=== PATIENT | female | born 1970 | race Caucasian/White ===

== ENCOUNTER 2018-11-07 08:30 | Inpatient (IN) | payer BC ==
[2018-11-08 13:00] VITALS: BMI 34.7
--- NOTE | 2018-11-09 10:43 | HP ---
Admitting History and Physical - Primary Care Physician PCP: Rafiq Trevino - Admission Chief Complaint: Right breast cancer History of Present Illness: 47 year old premenapausal female with 08/2018 mammogram showing assymetry RUOQ. Us showed right 1.3 cm density 4 cm Fn and a separate density right 10:00 8cm FN measuring 6 nn. US core bx at 10:00 were benign with some mucinous material. 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 Breast MRI RUOQ cancer with extensive enhancement C/W extensive DCIS requiring two MRI core bxs 09/2018 right breast retroareolar and 3:00 which showed DCIS in both cores . Therefore she will require a mastectomy.9:00 bx has a ciol clip and MRI cores have cylinder and buckle shape clip. 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 1982) ...LMP: 10/27/18 - Smoking History Smoking history: Never smoked - Alcohol/Substance Use Hx Alcohol Use: No Home Medications - Allergies Allergies/Adverse Reactions: Allergies Allergy/AdvReac Type Severity Reaction Status Date / Time amoxicillin Allergy Hives Verified 11/08/18 12:53 aspirin Allergy Hives Verified 11/08/18 12:53 Penicillins Allergy Hives Verified 11/08/18 12:53 cats Allergy Uncoded 11/08/18 12:53 - Home Medications Home Medications: Ambulatory Orders NK [No Known Home Medication] 11/08/18 Family Disease History - Family Disease History Other Family History: mat cousin breast ca and pat cousin ? gastric ca Physical Examination Breast(s): Yes: Other (D cup breasts scarring changes right 9:00 and upper outer quadrant. no palpble adenopathy or discrete mass left breast negative) Problem List - Problems (1) Breast cancer, right breast Code(s): C50.911 - MALIGNANT NEOPLASM OF UNSP SITE OF RIGHT FEMALE BREAST Qualifiers: Breast location: overlapping sites of breast Estrogen receptor status: positive Patient sex: female Qualified Code(s): C50.811 - Malignant neoplasm of overlapping sites of right female breast; Z17.0 - Estrogen receptor positive status [ER+] Assessment/Plan Right total mastectomy ,sentenel node biopsy possible axillary node dissection, lymphoscintogram tissue talent recruiter reconstruction
[2018-11-15] MEDS ORDERED: ceFAZolin SODIUM 1 GM VIAL ONE ×2 (09:39→10:41)
[2018-11-15] MEDS ORDERED: BUPIVACAINE HCL/PF 2.5 MG/ML - 30 ML VIAL IJ ONE (09:40)
[2018-11-15] MEDS ORDERED: GENTAMICIN SO4 80 MG/2 ML VIAL ONE (09:40)
[2018-11-15] MEDS ORDERED: ISOSULFAN BLUE 10 MG/ML VIAL SQ ONE (09:40)
[2018-11-15] MEDS ORDERED: LIDOCAINE 1%/EPI 1:100000 (20 ML MULTI DOSE VIAL) ONE (09:40)
[2018-11-15] MEDS ORDERED: BUPIVACAINE LIPOSOME/PF (EXPAREL) 266 MG/20 ML VIAL ONE (10:08)
[2018-11-15] MEDS ORDERED: PROPOFOL 20 ML ONE ×3 (10:19→13:08)
[2018-11-15] MEDS ORDERED: MIDAZOLAM HCL 2 MG/2 ML SINGLE DOSE VIAL ONE (10:20)
[2018-11-15] MEDS ORDERED: DEXAMETHASONE SOD PHOSPHATE 4 MG/1 ML VIAL ONE (10:41)
[2018-11-15] MEDS ORDERED: ONDANSETRON 4 MG/2 ML VIAL ONE (10:41)
[2018-11-15] MEDS ORDERED: LIDOCAINE HCL/PF 2% SDV 5ML VIAL ONE (10:41)
[2018-11-15] MEDS ORDERED: ePHEDrine SULFATE 50 MG/1 ML AMPULE ONE (10:58)
--- NOTE | 2018-11-15 12:39 | OP ---
DATE OF OPERATION: 11/15/2018 SURGEON: Susan Tapia MD SEASONAL DRIVER SURGEON: WALLY Molina PREOPERATIVE DIAGNOSES: 1. Opened wound with necrosis of right breast status post right mastectomy. 2. Personal history of breast carcinoma. POSTOPERATIVE DIAGNOSES: 1. Opened wound with necrosis of right breast status post right mastectomy. 2. Personal history of breast carcinoma. OPERATIVE PROCEDURES: 1. Debridement, right skin and subcutaneous tissue of right breast. 2. Capsulotomy, removal and replacement of right breast tissue rn clinical documentation specialist after pulse lavage. OPERATIVE INDICATION: Patient is a young woman who has previously undergone a bilateral mastectomy for breast cancer on October 18, 2018. She presented to the office with ischemia and breakdown of the right breast wound with evidence of poor tissue perfusion on the central portion around the incision. The patient also had some drainage and symptoms of early infection. The patient had previously been attempted closure in the office setting but now requires full operation with pulse lavage and irrigation. The risks and benefits of surgical versus nonsurgical alternatives as well as the material complications including no surgery were described to the patient in detail. All questions were asked and answered. She agreed to the planned procedure. OPERATIVE PROCEDURE IN DETAIL: The patient was taken to the operating room, and after induction of general anesthesia in supine position, the entire chest wall on the right side was prepped with ChloraPrep solution over itself entire extent, and sterile drapes were placed in the usual fashion. Upon examining the wound where the sutures still removed in the central portion in a transverse fashion, an elliptical excision of the poorly perfused skin was marked out using a marking pen and then excised after time-out with a No. 10 scalpel. This was carried down through the skin, through the subcutaneous tissue, down to the underlying acellular dermal matrix, which had previously been placed. At this point, the skin and subcutaneous tissue of the chest wall was removed and sent for pathologic diagnosis on the right breast. The Alloderm appeared to be intact, and this was opened and excised. Once this was opened, the tissue rn clinical documentation specialist, which was in position was removed, and a small amount of serous fluid from around the implant was suctioned out. Granulation tissue was seen on the backwall of the device and then a pulse lavage employee welfare manager was brought into the room, and using triple antibiotic solution, 3 L of pulsed saline with triple antibiotic solution was irrigated over the entire pocket. No alex purulence was seen within the pocket itself. At this point, after copious irrigation and hemostasis, a new device of a Sientra AlloX2 tissue rn clinical documentation specialist was placed into this pocket to replace the opposite one. This had no filling at all, and the air, which came in the device, was removed sterilely. The tissues were then repaired in layers using 3-0 Vicryl suture on the incorporated portions of the Alloderm, 3-0 and 2-0 Vicryl suture on the deep dermal tissues, and a running 3-0 nylon suture on the skin. A 15 Gonsalo drain was brought out through a separate stab wound laterally, and the repair seemed to be adequate. Xeroform and fluff dressings were placed on the patient. She was placed into a surgery bra, awakened, and transferred to the recovery room in satisfactory condition. SUSAN TAPIA M.D. MARCO ANTONIO/[id number]
[2018-11-15] MEDS ORDERED: ZOLPIDEM TARTRATE 5 MG TABLET PO PRN (13:18)
[2018-11-15] MEDS ORDERED: oxyCODONE HCL 5 MG TABLET PO PRN ×3 (13:18→14:07)
[2018-11-15] MEDS ORDERED: ACETAMINOPHEN 325 MG TABLET (FP) PO PRN (13:18)
[2018-11-15] MEDS ORDERED: ONDANSETRON 4 MG/2 ML VIAL IVPUSH PRN ×2 (13:18→14:07)
[2018-11-15] MEDS ORDERED: BUPIVACAINE LIPOSOME/PF (EXPAREL) 266 MG/20 ML VIAL NR ONE (13:30)
[2018-11-15] MEDS ORDERED: DEXTROSE 5%-0.45% SALINE 1,000 ML IV SCH (13:30)
[2018-11-15] MEDS ORDERED: BUPIVACAINE HCL/PF 0.25% (2.5MG/ML) 10 ML VIAL IJ ONE (13:30)
--- NOTE | 2018-11-15 13:51 | OP ---
DATE OF OPERATION: 11/15/2018 SURGEON: Rafiq Tapia MD FULLING MACHINE OPERATOR SURGEON: Miguel Angel Benítez PA-C PREOPERATIVE DIAGNOSIS: Right acquired chest wall deformity, status post right mastectomy. POSTOPERATIVE DIAGNOSIS: Right acquired chest wall deformity, status post right mastectomy. OPERATIVE PROCEDURE: Immediate right breast reconstruction utilizing immediate insertion of tissue tree inspector and acellular dermal matrix reconstruction with mesh. OPERATIVE INDICATION: Patient is a young woman who was brought to the operating room by Dr. Rafiq Trevino for right breast mastectomy for breast cancer. Patient underwent the procedure, and Dr. Trevino will dictate under separate cover. OPERATIVE PROCEDURE IN DETAIL: After timeout and prepping and draping in the usual fashion, as Dr. Trevino began the procedure on the right chest wall with right mastectomy in uup-jcbegd-nukiter fashion and sentinel lymph node biopsy, I began the reconstruction on the back table. Using a 15 x 15 sheet of ProGrip mesh, a 16 x 20 sheet of Cortiva acellular dermal matrix, and a 460-mL AlloX2 tissue tree inspector, I reconstructed the device on the back table. These were copiously irrigated with triple-antibiotic solution, and then, using 2-0 Vicryl sutures, the anterior portion of ADM was sutured down to the mesh which was placed on the back side of the device with the ProGrip side downwards. This gave a complete wrap of the tissue tree inspector which was filled to its capacity of 550-mL volume. Good shape and contour was seen with this smooth tissue tree inspector device. Upon completion of the mastectomy, which the wounds were copiously irrigated and controlled by Dr. Trevino, I then took the device from the back table, copiously irrigated the pocket, hemostasis again obtained, and the device was placed onto the pectoralis major muscle on its deep side and in the subcutaneous position. This was tacked into position using 0 V-Loc suture in a running fashion from the mesh down to the pectoralis muscle on the inferior side from the 3 o'clock to 9 o'clock position of the right breast. After Silas-Crowe drain x2 was placed on the right side and brought out through separate stab wounds, the skin and subcutaneous tissue was advanced and closed upon itself using 3-0 PDS suture on the deep tissue and 3-0 V-Loc suture in a running fashion on the skin. Dry sterile dressings with Dermabond and Steri-Strips were placed. She was awakened, extubated, and transferred to the recovery room with a Surgi-Bra and tolerated the procedure well. RAFIQ TAPIA M.D. /[id number]
[2018-11-15] MEDS ORDERED: PROMETHAZINE HCL 25 MG/1 ML VIAL IVPUSH PRN (14:07)
--- NOTE | 2018-11-15 14:14 | OP ---
Operative Note - Note: Operative Date: 11/15/18 Pre-Operative Diagnosis: Rt chest wall deformity s/p Rt breast mastectomy Operation: Immediate right breast reconstruction utilizing tissue helicopter specialist and dermal matrix reconstruction with mesh Post-Operative Diagnosis: Same as Pre-op Surgeon: Adair Tapia Commercial Instructor Supervisor: Miguel Angel Benítez Anesthesiologist/GLOBAL SECURITY ARCHITECT: Amilcar Villegas Anesthesia: General Estimated Blood Loss (mls): 200 Operative Report Dictated: Yes
--- NOTE | 2018-11-15 14:15 | SURG ---
Surgery Framing Manager Note Framing Manager: Miguel Angel Benítez PA-C Date of Service: 11/15/18 Diagnosis: Rt chest wall deformity s/p Rt breast mastectomy Procedure: Immediate right breast reconstruction utilizing tissue personnel placement specialist and dermal matrix reconstruction with mesh I was present for the entirety of the operative procedure. For further detail, please refer to operative report. Visit type - Case Type Case Type: Scheduled - Emergency Emergency Visit: No - New patient This patient is new to me today: Yes Date on this admission: 11/15/18 - Critical Care Critical Care patient: No
--- NOTE | 2018-11-15 16:33 | OP ---
DATE OF OPERATION: 11/15/2018 PREOPERATIVE DIAGNOSIS: Right breast cancer, multifocal. POSTOPERATIVE DIAGNOSIS: PROCEDURE PERFORMED: Right breast total mastectomy with right axillary sentinel lymph node biopsy and prepectoral rigging worker reconstruction with acellular dermal matrix. ANESTHESIA: General endotracheal anesthesia. PRIMARY SURGEON: Susan Trevino MD ROUND CUTTER OPERATOR: WALLY Jean PLASTIC SURGEON: Susan Tapia MD COMPLICATIONS: There were no complications. INDICATIONS: Briefly, the patient is a 47-year-old premenopausal white female of [place] descent with a family history with her maternal cousin who had breast cancer at age 40 and a paternal cousin had stomach cancer at age 32, who . The patient was found to have some asymmetry on right breast mammography, and ultrasound showed a 1.3-cm area in the right breast 9 o'clock region, as well as a separate 6-mm region of suspicion in the right breast 10 o'clock position. She underwent ultrasound-guided core biopsies and the 10 o'clock density came back as benign stromal fibrosis, but the 9 o'clock density came back as a moderately differentiated invasive duct cancer, which was ER/CO positive, HER-II/GUSTAVO negative, with an intermediate Ki-67. She underwent an MRI, which showed extensive enhancement centrally in the right breast extending to the nipple, and she underwent separate MRI-guided core biopsies in the right breast 3 o'clock and retroareolar positions, which both showed intermediate grade DCIS. Due to the extent of disease, mastectomy was indicated, and she was seen by Plastic Surgery, and the decision was made to go forward with a prepectoral rigging worker reconstruction on the right. She understood the need for the mastectomy as well as sentinel lymph node biopsy on the right. DESCRIPTION OF PROCEDURE: The patient was brought in for the procedure on November 15, 2018, and first underwent lymphoscintigraphy at [facility] at [facility]. She was then brought to the [place] holding area. In the holding area, site verification was made and informed consent was obtained. She was marked preoperatively by the plastic surgeon. She was brought into the operating room and laid on the OR table in the supine position. Venodynes were placed on the lower extremities prior to induction. She received IV antibiotics prior to incision. She underwent general endotracheal anesthesia. Lymphazurin Blue 3 mL was injected intradermally around the right breast nipple-areolar complex, and massage was instituted. A time-out was performed. An incision was made just below the hair-bearing area of the right axilla, after she was appropriately prepped and draped. Dissection was undertaken, and a blue lymphatic was easily seen, coursing to a blue hot lymph node with a 10-second gamma count of 22,107. This was sent to Pathology for permanent section in formalin. A second hot blue node was found in the level 1 region of the right axilla with a 10-second gamma count of 1149. A third sentinel node was found in the level 2 region of the right axilla, with a 10-second gamma count of 2734. There were no other blue or hot nodes found, and the background count was 140 at this point. Hemostasis was achieved. The total mastectomy was then performed using a skin-sparing technique, using an elliptical incision around the right breast nipple-areolar complex. A skin flap was raised superiorly to the level of the clavicle, medially to the level of the sternum, laterally to the level of the latissimus, and inferiorly below the level of the inframammary fold. The breast was taken down off the pectoralis major muscle from medial to lateral, and completely removed intact. It was oriented with a long-lateral and short-superior suture and weighed to allow for appropriate cosmetic result. Specimen x-ray showed removal of all 4 clips in the right breast. Separate margins were then taken on the anterolateral and anteromedial aspects of the skin flap with a suture marking the biopsy cavity side, and these were sent separately to Pathology in formalin. Hemostasis was achieved, and the wound was copiously irrigated with warm sterile saline. At this point Dr. Tapia became the primary surgeon. He performed a prepectoral rigging worker reconstruction using acellular dermal matrix. This will be dictated separately by Plastic Surgery. The axillary wound was closed using interrupted 3-0 deep dermal Vicryl suture and a running 4-0 subcuticular Biosyn suture. The breast wound will be closed separately by Plastic Surgery, again using interrupted 3-0 deep dermal Vicryl suture and a running 4-0 Biosyn suture. Dressings will be applied by Plastic Surgery. She did have drains placed by Plastic Surgery prior to closure. The patient will be recovered, after she is extubated, in the postanesthesia care unit, and then will be admitted postoperatively for pain and wound management. Estimated blood loss after the mastectomy was about 20 mL, and she was hemodynamically stable throughout. All sponge and needle counts were correct after the mastectomy portion of the case. SUSAN TREVINO M.D. [id number]
[2018-11-16] MEDS ORDERED: ONDANSETRON 4 MG/2 ML VIAL IVPUSH PRN (08:03)
[2018-11-16] MEDS: HEPARIN NA (PORCINE) 5,000 UNITS/ML 1ML VIAL SQ SCH ×2 (08:22→21:04)
[2018-11-16 08:33] LABS: HEMATOCRIT 34.9 % (32.4-45.2); HEMOGLOBIN 11.7 GM/dl (10.7-15.3); MCHC 33.5 g/dl (32.0-36.0); MEAN CELL VOLUME 83.6 fl (80-96); MEAN PLT VOLUME 9.2 fl (7.5-11.1); PLATELET COUNT 261 K/MM3 (134-434); RBC 4.17 M/mm3 (3.60-5.2); RDW 12.9 % (11.6-15.6); WHITE BLOOD COUNT 8.9 K/mm3 (4.0-10.8)
--- NOTE | 2018-11-16 10:29 | PN ---
Progress Note (short form) - Note Progress Note: POD#1 Pt without any nausea/emesis. Left hand IV infiltrated and somewhat swollen. Warm compress in place. No right arm pain. Minimal breast tendneress. Vital Signs Period Temp Pulse Resp BP Sys/Summers Pulse Ox Last 24 Hr 97.9 F-99.9 F 67-108 14-20 105-139/54-84 92-98 ANA: right #1 40ml-serosangrenous 130ml-serosangrenous GEN: A&0x3 NAD CV: RRR Lungs: CTA b/l Right Breast: Right axillary inc c/d/i. Right breast dressing c/d/i with steri- strips. Mild ecchymosis. Mild delayed cap refill on lateral> superior aspect on incision. CBC, BMP 11/16/18 07:33 A/p: 47 yo female s/p Right mastectomy with tissue medication tech and dermal matrix reconstruction with mesh Care and discharge as per the primary surgical team, plan for possible discharge in the am IV abx DV PPX with heparin SQ Isha hugger Oral pain medications D/w Dr. Tapia
--- NOTE | 2018-11-16 11:47 | PN ---
Progress Note (short form) - Note Progress Note: ANESTHESIA POSTOP 47 YO FEMALE POD#1 S/P R MASTECTOMY WITH TISSUE DRUM ATTENDANT, GETA Patient resting in bed. Tolerating PO. Pain adequately controlled. VSS, Afebrile Continue current care. Encouraged IS and ambulation. No anesthetic complications.
--- NOTE | 2018-11-16 12:46 | PN ---
Progress Note, Physician Chief Complaint: Right breast cancer S/P right total mastectomy, sentenl node biopsy with dermal matrix net fisher above muscle POD#1 History of Present Illness: patients pain is controlled,OOB, eating no nause or vomiting, discussed case with Dr Tapia that net fisher is fully inflated - Current Medication List Current Medications: Active Medications Acetaminophen (Tylenol -) 650 mg PO Q4H PRN PRN Reason: FEVER Last Admin: 11/16/18 00:46 Dose: 650 mg Heparin Sodium (Porcine) (Heparin -) 5,000 unit SQ BID@0800,2000 BONNIE Last Admin: 11/16/18 08:22 Dose: 5,000 unit Levofloxacin (Levaquin 500 Mg Premixed Ivpb -) 500 mg in 100 mls @ 100 mls/hr IVPB DAILY [facility]; Protocol Last Admin: 11/16/18 10:29 Dose: 100 mls/hr Ondansetron HCl (Zofran Injection) 4 mg IVPUSH Q6H PRN PRN Reason: NAUSEA AND/OR VOMITING Oxycodone HCl (Roxicodone -) 5 mg PO Q4H PRN PRN Reason: PAIN LEVEL 6-10 Zolpidem Tartrate (Ambien -) 5 mg PO HS PRN PRN Reason: Insomnia - Objective Vital Signs: Vital Signs Temperature 98.3 F 11/16/18 06:00 Pulse Rate 67 11/16/18 06:00 Respiratory Rate 18 11/16/18 06:00 Blood Pressure 116/63 11/16/18 06:00 O2 Sat by Pulse Oximetry (%) 98 11/16/18 06:00 Constitutional: Yes: No Distress Breast(s): Yes: Other (Right flap viable with moderate echymosis, net fisher in place and fully inflated, incision intact, Kristopher drains functioning well) Labs: CBC, BMP 11/16/18 07:33 Problem List - Problems (1) Breast cancer, right breast Code(s): C50.911 - MALIGNANT NEOPLASM OF UNSP SITE OF RIGHT FEMALE BREAST Qualifiers: Breast location: overlapping sites of breast Estrogen receptor status: positive Patient sex: female Qualified Code(s): C50.811 - Malignant neoplasm of overlapping sites of right female breast; Z17.0 - Estrogen receptor positive status [ER+] Assessment/Plan spirometry IV antibiotics SCD heparin Tylenol/oxycodone prn
[2018-11-17 07:07] VITALS: BP 117/63; PULSE 76; TEMP 98.2
[2018-11-17] MEDS: HEPARIN NA (PORCINE) 5,000 UNITS/ML 1ML VIAL SQ SCH (08:13)
--- NOTE | 2018-11-17 13:05 | DS ---
Physical Examination Vital Signs: Vital Signs Temperature 98.2 F 11/17/18 06:00 Pulse Rate 76 11/17/18 06:00 Respiratory Rate 18 11/17/18 06:00 Blood Pressure 117/63 11/17/18 06:00 O2 Sat by Pulse Oximetry (%) 94 L 11/17/18 06:00 Constitutional: Yes: Well Nourished, No Distress, Calm Wound/Incision: Yes: Clean/Dry, Well Approximated Labs: CBC, BMP 11/16/18 07:33 Discharge Summary Reason For Visit: RIGHT BREAST CA Procedures: Principal: Right Mastectomy with Elementary School Social Worker Implant Condition: Good - Instructions Diet, Activity, Other Instructions: Post Operative Instructions - [facility] We hope your recovery will be uneventful. For those of you who have been given general anesthesia, there is a possibility you might have some lightheadedness and possibly nausea. It is important that each patient, especially those who have had general anesthesia, follow these instructions, please: 1. Do NOT operate a motor vehicle for 24 hours. 2. Do NOT drink any alcoholic beverages for 24 hours. 3. Do NOT take any sedatives, narcotics, or tranquilizers for 24 hours unless specifically ordered by your surgeon. 4. Do NOT undertake any strenuous exercise or outside activity for 24 hours unless specifically permitted by your surgeon. 5. Eat light foods that are easy to digest. If you have any problems with nausea and vomiting, lie down and rest. If it continues, call your surgeon. 6. Call your surgeon AT ONCE if you have problems with: a. Bleeding b. Urinating c. Excessive pain or drainage d. Numbness If any problems occur, call your physician first. If you cannot reach him/her, call the Ambulatory Surgery Unit at [phone], or the Emergency Room at . Follow up with Drs. Trevino / Rebecca in 7 days. Medication: Vicodin E-S OR Percocet 1-2 tablets every 4-6 hrs as needed for 5-7 days. Wound Care: Keep wound dry and clean for 48 hours. You may remove the dressing after 48 hours and may shower. Keep steri-strips in place until follow-up appointment No heavy lifting or strenuous activities. BREAST SURGERY INSTRUCTIONS Edgar Trevino M.D., FACS Rafiq Trevino M.D., JAY Fernandez M.D., FACS 1. Please call the office at to make a follow up appointment with your surgeon. This number can be also used for any urgent issues you may have. 2. Call us immediately if any of the following occur: *Bleeding from the incision or drain site (a small amount is normal) *Fever or chills *Redness and worsening tenderness around the surgical site *Drainage of pus or fluid from the incision or drain site 3. You may change the surgical dressing two (2) days after your surgery, and may shower then. If you have drains, you may shower after they have been removed, until then take a sponge bath. 4. It is normal for there to be some bruising and tenderness around the surgical site, and the breast may also be firm in this area. 5. Your surgeon used 3M DuraPrep Surgical Solution, a bacteria-killing skin preparation. It is recommended that this film remain on the skin after the procedure. The film will gradually wear away. If, however, early removal is desired: 1. Apply 8610 or 8611 3M Remover solution to the prepped area, keeping away from the wound edge or puncture site. Wipe off with a disposable towel. OR 2. Soak gauze with 70% Isopropyl alcohol and place on the prepped area for at least 40 seconds. Lightly scrub to remove the solution. 6. Please wear a comfortable bra (sports or surgical bra) all day and all night until your first follow-up visit with your surgeon. 7. The pain medicine you have been prescribed may make you constipated; make sure you drink plenty of water. You may use an over the counter laxative if needed. 8. You may resume your normal diet after surgery, although you may want to avoid rich foods for the first twenty-four (24) hours after surgery. Alcoholic drinks should be avoided while taking the prescribed pain medicine. 9. You may resume normal activities as long as there is no discomfort, but do not do upper body exercises until after your follow-up appointment. Do not lift anything heavier than a large phone book. You may resume driving once you have stopped taking the prescribed pain medicine and feel comfortable doing arm movements. WEAR BRA, NO shower, empty and record ANA output twice daily Referrals: Rafiq Trevino MD [Staff Physician] - Adair Tapia MD [Staff Physician] - Disposition: HOME - Home Medications Comprehensive Discharge Medication List: Ambulatory Orders Ciprofloxacin HCl [Cipro] 500 mg PO BID #20 tablet 11/16/18 Oxycodone HCl/Acetaminophen [Percocet 5-325 mg Tablet] 1 - 2 tab PO Q6H PRN #20 tab MDD 6 11/16/18
--- NOTE | 2018-11-20 13:27 | PATH ---
Surgical Pathology Report Patient Name: SOHAIL SUAREZ [facility]. Rec. #: [id number] /Age/Gender: 1970 (Age: 47) / F Account: [id number] Location: REPLACED BY [facility] Taken: 11/15/2018 Received: 11/15/2018 Reported: 11/20/2018 Physicians: Rafiq Trevino M.D. Specimen(s) Received A: RIGHT BREAST SENTINEL NODE #1(FS) B: RIGHT BREAST SENTINEL NODE #2(FS) C: RIGHT BREAST SENTINEL NODE #3(FS) D: RIGHT BREAST LATERAL ANTERIOR MARGIN E: RIGHT BREAST MEDIAL ANTERIOR MARGIN F: RIGHT BREAST MASTECTOMY Clinical History Breast cancer Intraoperative Consult Diagnosis A. Right breast sentinel node #1, frozen section: One negative lymph node (0/1). B. Right breast sentinel node #2, frozen section: One negative lymph node (0/1). C. Right breast sentinel node #3, frozen section: One negative lymph node (0/1). Dr. Bocanegra Final Diagnosis A. RIGHT BREAST SENTINEL NODE #1, EXCISION (FS): ONE LYMPH NODE, NEGATIVE FOR METASTATIC CARCINOMA (0/1). B. RIGHT BREAST SENTINEL NODE #2, EXCISION (FS): ONE LYMPH NODE, NEGATIVE FOR METASTATIC CARCINOMA (0/1). C. RIGHT BREAST SENTINEL NODE #3, EXCISION (FS): ONE LYMPH NODE, NEGATIVE FOR METASTATIC CARCINOMA (0/1). D. RIGHT BREAST LATERAL ANTERIOR MARGIN, EXCISION: BENIGN BREAST TISSUE. E. RIGHT BREAST MEDIAL ANTERIOR MARGIN, EXCISION: BENIGN BREAST TISSUE. F. RIGHT BREAST, MASTECTOMY: INVASIVE DUCTAL CARCINOMA, MODERATELY DIFFERENTIATED (TUBULE SCORE 2/3, NUCLEAR GRADE: 2/3, MITOTIC SCORE: 2/3, TOTAL SCORE 6/9, LINO GRADE 2), MEASURING 2.0 CM IN GREATEST DIMENSION, MICROSCOPICALLY, AT UPPER OUTER QUADRANT. EXTENSIVE DUCTAL CARCINOMA IN SITU (DCIS) PRESENT, INTERMEDIATE TO HIGH NUCLEAR GRADE, SOLID AND CRIBRIFORM PATTERN, WITH ASSOCIATED NECROSIS, CALCIFICATIONS, AND CANCERIZATIONOFLOBULES. DCIS EXTENDS TO RETROAREOLAR AND 3 O'CLOCK INNER QUADRANTS. SURGICAL MARGINS ARE UNINVOLVED BY CARCINOMA. INVASIVE CARCINOMA IS AT 2 MM FROM THE CLOSEST (ANTERIOR) MARGIN. DCIS IS AT 1.5MM FROM THE CLOSEST (ANTERIOR) MARGIN. ALSO SEE SPECIMENS D AND E FOR FINAL ANTERIOR MARGINS. LYMPHOVASCULAR INVASION IS IDENTIFIED. PRIOR BIOPSY SITES WITH REACTIVE CHANGES. PATHOLOGIC STAGE (PTNM): PT1c, PN0 SEE ALSO INVASIVE CARCINOMA CASE SUMMARY BELOW. Comment: Immunohistochemical stain p63 (block F11 and F15) performed and interpreted at [facility] shows intact myoepithelial cell layer in the areas of DCIS. Comments Breast Invasive Carcinoma: Surgical Pathology Case Summary (Based on AJCC TNM 8 th edition) Procedure _x_ Total mastectomy (including nipple-sparing and skin-sparing mastectomy) Specimen Laterality _x_ Right Tumor Size Greatest dimension of largest invasive focus >1 mm (millimeters): 20mm Histologic Type _x_ Invasive carcinoma of no special type (ductal, not otherwise specified) Histologic Grade (Wilsey Histologic Score) Glandular (Acinar)/Tubular Differentiation _x_ Score 2 (10% to 75% of tumor area forming glandular/tubular structures) Nuclear Pleomorphism _x_ Score 2 Mitotic Rate _x_ Score 2 Overall Grade _x_ Grade 2 (scores of 6 or 7) Tumor Focality _x_ Single focus of invasive carcinoma Ductal Carcinoma In Situ (DCIS) _x_ DCIS is present in specimen _x_ Positive for extensive intraductal component (EIC) Size (extent) of DCIS: Estimated size (extent) of DCIS is at least (millimeters): 100mm Margins Invasive Carcinoma Margins _x_ Uninvolved by invasive carcinoma Distance from closest margin (millimeters): 2 mm Closest margin: anterior. The invasive carcinoma is at 2 mm from the anterior margin in the mastectomy (specimen F). Additional lateral anterior margin (specimen D) and medial anterior margin (specimen E) are negative for carcinoma. DCIS Margins _x_ Uninvolved by DCIS Distance from closest margin (millimeters): 1.5 mm Closest margin: Closest margin: anterior. The DCIS is at 1.5 mm from the anterior margin in the mastectomy (specimen F). Additional lateral anterior margin (specimen D) and medial anterior margin (specimen E) are negative for carcinoma. Regional Lymph Nodes _x_ Uninvolved by tumor cells Number of Lymph Nodes Examined: 3 Number of [place] Nodes Examined: 3 Treatment Effect _x_ No known presurgical therapy Lymphovascular Invasion _x_ Present Pathologic Stage Classification (pTNM, AJCC 8th Edition) Primary Tumor (Invasive Carcinoma) (pT) _x_ pT1c: Tumor >10 mm but =20 mm in greatest dimension Category (pN) _x_ pN0: No regional lymph node metastasis identified or ITCs only Biomarker Studies Results of ER and WA studies performed on this specimen (block# F5) at [facility] are as follows: ER (clone [id number] mouse monoclonal antibody by [employer]): ~90 % nuclear staining with weak to strong intensity (positive). WA (clone16 mouse monoclonal antibody by [employer]): ~90 % nuclear staining with weak to strong intensity (positive). Results of Her2 (IHC) & Ki-67 studies performed on this specimen (block# F5) at [place], [place] ([id number]) are as follows: Her2 IHC (EP3 from [employer], formerly known as [id number], using [employer] Polymer Refine detection kit): 2+ (equivocal) Ki67: 15~20% (intermediate proliferative index) Her2 FISH pending. An addendum report to follow. Positive and negative controls (internal if applicable) show appropriate results. Formalin fixation and cold ischemic times are within current ASCO/CAP recommendations for ER, WA and Her2 testing. Electronically Signed Neda Seay M.D. Gross Description A. Received fresh for immediate intraoperative consultation labeled "right breast sentinel lymph node #1" is a lymph node measuring 2.2 cm in greatest dimension. The lymph node is bisected and submitted for frozen section analysis. The rest of the tissue is submitted in 1 cassette for histology. B. Received fresh for immediate intraoperative consultation labeled "right breast sentinel lymph node #2" is a lymph node measuring 1.7 cm in greatest dimension. The lymph node is submitted for frozen section analysis. The rest of the tissue is submitted in 1 cassette for histology. C. Received fresh for immediate intraoperative consultation labeled "right breast sentinel lymph node #3" is a lymph node measuring 0.9 cm in greatest dimension. The lymph node is bisected and submitted for frozen section analysis. The rest of the tissue is submitted in 1 cassette for histology. D. Received in formalin labeled "right breast lateral anterior margin, suture carey biopsy cavity site ", is a 4.5 x 2.3 x 0.7 cm portion of fibroadipose tissue with a suture marked at biopsy cavity site, per the surgeon. The new margin is inked blue. The specimen is serially sectioned. The specimen is entirely submitted in 3 cassettes. E. Received in formalin labeled "right breast medial anterior margin, suture carey biopsy cavity site ", is a 5.0 x 3.0 x 0.6 cm portion of fibroadipose tissue with a suture marked at biopsy cavity site, per the surgeon. The new margin is inked blue. The specimen is serially sectioned. The specimen is entirely submitted in 3 cassettes. B. Received in formalin, labeled "right breast mastectomy, long stitch lateral, short stitch superior " is a 799 grams, 21.0 x 20.0 x 7.6 cm mastectomy specimen with nipple (1.2cm in greatest dimension). The nipple and surrounding skin measures 5.5 x 3.8 cm. There is a short suture marking the superior aspect and a long suture marking the lateral aspect, per the surgeon. The specimen is inked as follows: superior and inferior: red, medial green; lateral blue; anterior soft tissue margin yellow; deep black. The specimen is serially sectioned from lateral to media. Sectioning reveals an ill-defined mass at upper outer quadrant approximately 9:00 location, with focal hemorrhage. It measures 2cm in greatest dimension. Separate focal hemorrhage is also seen at the retroareolar soft tissue. The fibrotic parenchyma shows firm, gritty changes at the upper outer quadrant, and inner quadrants. No other mass present. Sample Wrapper sections are submitted in 25 cassettes as follows: 1-4: full face section of mass and surrounding tissue in the upper outer quadrant, 9:00, with anterior margin in #1, anterior and inferior margin in cassette 2, deep margin in #4. 5-6: Other sections of tumor with anterior margin; 7: Superior margin; 8: Inferior margin; 9: Nipple and anterior soft tissue margin; 10-11: Upper outer quadrant with gritty area .12- 15: full face, transected, continue sections from retroareolar breast tissue .16: Random outer lower quadrant. 17. Inner upper quadrant superior margin. 18 to 21: Inner quadrants 3:00 area. 22.-23: Inner lower quadrant. 24: Medial margin. 25. Lateral margin . Time to formalin fixation: 20 minutes Formalin fixation time: Approximately 30 hours
== END 2018-11-17 14:30 | disposition home or self-care (01) | DRG 581 ==
LOC: FM/S 11-15 09:28
PROVIDERS: ADMIT Surgery Surgical Oncology; ATTEND Surgery Surgical Oncology
PROC: 0HNT0ZZ Release Right Breast, Open Approach (ICD-10-PCS; 2018-11-15)
PROC: 0HPT0NZ Removal of Tissue Expander from Right Breast, Open Approach (ICD-10-PCS; 2018-11-15)
PROC: 0HHT0NZ Insertion of Tissue Expander into Right Breast, Open Approach (ICD-10-PCS; 2018-11-15)
PROC: 0HTT0ZZ Resection of Right Breast, Open Approach (ICD-10-PCS; principal; 2018-11-15 10:59)
PROC: 07B50ZX Excision of Right Axillary Lymphatic, Open Approach, Diagnostic (ICD-10-PCS; 2018-11-15 10:59)
PROC: 0HBT0ZZ Excision of Right Breast, Open Approach (ICD-10-PCS; 2018-11-15 10:59)
DX: C50.811 Malignant neoplasm of overlapping sites of right female breast (principal); Z17.0 Estrogen receptor positive status [ER+]; Z88.0 Allergy status to penicillin; M95.4 Acquired deformity of chest and rib
CPT/HCPCS: 36415; 78195-TC; 84703; 85027; 88307-TC; 88331-TC; 88342-TC; 94760; A9541; J1644

== ENCOUNTER 2019-08-27 06:22 | Inpatient (IN) | payer BC, OTHER ==
[2019-08-26 09:59] VITALS: BMI 38.4
[2019-08-27] MEDS ORDERED: SUCCINYLCHOLINE CHLORIDE 200 MG/10 ML SYRINGE ONE (07:29)
[2019-08-27] MEDS ORDERED: ROCURONIUM BROMIDE 50 MG/5 ML SYRINGE ONE ×2 (07:29→09:20)
[2019-08-27] MEDS ORDERED: KETAMINE HCL 200 MG/20 ML VIAL ONE (07:29)
[2019-08-27] MEDS ORDERED: MIDAZOLAM HCL 2 MG/2 ML SINGLE DOSE VIAL ONE (07:29)
[2019-08-27] MEDS ORDERED: PROPOFOL 20 ML ONE (07:29)
[2019-08-27] MEDS ORDERED: PAPAVERINE HCL 30 MG/1 ML 10 ML VIAL NR ONE (07:31)
[2019-08-27] MEDS ORDERED: BUPIVACAINE HCL/PF 0.25% (2.5MG/ML) 10 ML VIAL ONE (07:31)
[2019-08-27] MEDS ORDERED: BUPIVACAINE LIPOSOME/PF (EXPAREL) 266 MG/20 ML VIAL ONE (07:31)
[2019-08-27] MEDS ORDERED: HEPARIN NA (PORCINE) 5,000 UNITS/ML 1ML VIAL ONE (07:31)
[2019-08-27] MEDS ORDERED: LIDOCAINE HCL/PF 2% SDV 5ML VIAL ONE (07:34)
[2019-08-27] MEDS ORDERED: ceFAZolin SODIUM 1 GM VIAL ONE (07:34)
[2019-08-27] MEDS ORDERED: DEXAMETHASONE SOD PHOSPHATE 4 MG/1 ML VIAL ONE (07:34)
[2019-08-27] MEDS ORDERED: MAGNESIUM SULF 50% (8.12 MEQ/2 ML-1 GM VIAL) ONE (07:36)
[2019-08-27] MEDS ORDERED: DEXMEDETOMIDINE HCL 200 MCG/2 ML IVPB ONE (07:45)
[2019-08-27] MEDS ORDERED: LIDOCAINE HCL 2% (20ML MULTI-DOSE VIAL) ONE (07:45)
[2019-08-27] MEDS ORDERED: ceFAZolin SODIUM 1 GM VIAL IVPB ONE (08:23)
[2019-08-27] MEDS ORDERED: HEPARIN NA (PORCINE) 5,000 UNITS/ML 1ML VIAL SQ ONE ×2 (08:23→16:30)
[2019-08-27] MEDS ORDERED: EPHEDRINE SULFATE/0.9% NACL/PF 50 MG/10 ML SYRINGE NR ONE (08:46)
[2019-08-27] MEDS ORDERED: BUPIVACAINE LIPOSOME/PF (EXPAREL) 266 MG/20 ML VIAL IJ ONE (09:38)
[2019-08-27] MEDS ORDERED: BUPIVACAINE HCL/PF 0.25% (2.5MG/ML) 10 ML VIAL IJ ONE (09:38)
[2019-08-27] MEDS ORDERED: NEOSTIGMINE METHYLSULFATE 0.5 MG/ML - 10 ML MDV ONE (12:33)
[2019-08-27] MEDS ORDERED: GLYCOPYRROLATE 0.2 MG/1 ML VIAL ONE (12:34)
[2019-08-27] MEDS ORDERED: diazePAM 5 MG TABLET PO PRN (13:02)
[2019-08-27] MEDS ORDERED: oxyCODONE HCL 5 MG TABLET PO PRN ×2 (13:02→21:28)
[2019-08-27] MEDS ORDERED: GOSERELIN ACETATE 3.6 MG SQ SCH (13:15)
[2019-08-27] MEDS ORDERED: DEXTROSE 5%-0.45% SALINE 1,000 ML IV SCH (13:15)
[2019-08-27] MEDS ORDERED: LACTATED RINGERS SOLUTION 1,000 ML IV SCH (14:00)
[2019-08-27] MEDS ORDERED: ONDANSETRON 4 MG/2 ML VIAL IVPUSH PRN (14:00)
[2019-08-27] MEDS: HEPARIN NA (PORCINE) 5,000 UNITS/ML 1ML VIAL SQ SCH ×2 (16:45→21:36)
[2019-08-27] MEDS: CEFAZOLIN 2 GM/D5W 2 GM/50 ML ML IVPB SCH (17:17)
--- NOTE | 2019-08-27 21:23 | CONSULT ---
Consultation: REQUESTING PROVIDER: Surgery: Jose Martin Goel CONSULT REQUEST: We have been asked to medically evaluate this patient for (s/p removal of tissue manager treasury and flap). HISTORY OF PRESENT ILLNESS: 48 y/o F, pmh of Right breast cancer S/P right total mastectomy, sentenal node biopsy with dermal matrix manager treasury above muscle, currently undergoing anastrazole and zoladex therapy presents to the hospital for elective surgical removal of tissue manager treasury and flap. Pt was diagnosed with right breast cancer in October on a routine mammogram, with three masses, two of them being positive, one being negative, with no evidence of mets elsewhere including negative lymph node mets. She underwent surgical resection in October following the dx. Pt has never taken tamoxifen, and was recommended anastrazole and zoladex by her oncologist. Pt reports allergies/ hives/ rashes to aspirin and penicillins. Pt has a cousin on maternal side with breast cancer. 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 Pt also had a brother with similar guillian bare diagnosis. Pt is s/p surgery POD1, AOx3, no f/c/n/v/d/sob/chest/ abdominal pain. REVIEW OF SYSTEMS: CONSTITUTIONAL: Absent: fever, chills, diaphoresis, generalized weakness, HEENT: Absent: rhinorrhea, nasal congestion, throat pain, throat swelling CARDIOVASCULAR: Absent: chest pain, syncope, palpitations, irregular heart rate RESPIRATORY: Absent: cough, shortness of breath, wheezing, stridor, hemoptysis GASTROINTESTINAL: Absent: abdominal pain, abdominal distension, nausea, vomiting, diarrhea, constipation GENITOURINARY: Absent: dysuria MUSCULOSKELETAL: Absent: myalgia, neck pain NEUROLOGIC: Absent: headache, focal weakness or paresthesias, dizziness, unsteady gait PSYCHIATRIC: Absent: anxiety PHYSICAL EXAMINATION Vital Signs - 24 hr 08/27/19 08/27/19 08/27/19 07:01 13:06 13:20 Temperature 98.3 F 98.6 F Pulse Rate 80 74 74 Respiratory 16 16 16 Rate Blood Pressure 136/85 137/88 132/89 O2 Sat by Pulse 98 98 98 Oximetry (%) GENERAL: Awake, alert, and fully oriented, in no acute distress. EYES: Pupils equal, round and reactive to light, extraocular movements intact, sclera anicteric, conjunctiva clear. EARS, NOSE, THROAT: Dry mucous membranes. NECK: Normal range of motion, supple without lymphadenopathy, JVD, or masses. LUNGS: Breath sounds equal, clear to auscultation bilaterally. No wheezes, and no crackles. Breast: Right breast surgical dressing intact, no drainage, mild tenderness. HEART: Regular rate and rhythm, normal S1 and S2 without murmur, rub or gallop. ABDOMEN: Soft, nontender, not distended, normoactive bowel sounds, no guarding, no rebound, no masses. Surgical heather intact, no purulent or serosanguinus drainage. 12 cm suprapubic skin incision with heather present, surgical site closed. Periumbilical heather 3 cm, no drainage. MUSCULOSKELETAL: Normal range of motion at all joints. No bony deformities or tenderness. UPPER EXTREMITIES: 2+ pulses, warm, well-perfused. No cyanosis. No clubbing. No peripheral edema. LOWER EXTREMITIES: 2+ pulses, warm, well-perfused. No calf tenderness. No peripheral edema. NEUROLOGICAL: Normal speech. Normal gait. Laboratory Results - last 24 hr 08/27/19 08/27/19 06:30 06:30 Serum , Qual Negative Blood Type O NEGATIVE Antibody Screen Negative Active Medications Generic Name Dose Route Start Last Admin Trade Name Freq PRN Reason Stop Dose Admin Anastrozole 1 mg 08/27/19 22:00 Arimidex - PO HS BONNIE Diazepam 5 mg 08/27/19 13:02 Valium - PO Q8H PRN ANXIETY Docusate Sodium 100 mg 08/27/19 22:00 Colace - PO BID BONNIE Fentanyl 50 mcg 08/27/19 14:00 Sublimaze Injection - IVPUSH [id number] PRN PAIN-PACU ORDER X 4 DOSES ONLY Heparin Sodium (Porcine) 5,000 unit 08/27/19 14:00 08/27/19 16:45 Heparin - SQ 5,000 unit TID BONNIE Administration Dextrose/Sodium Chloride 1,000 mls @ 125 mls/hr 08/27/19 13:15 08/27/19 16:45 D5-1/2ns - IV 08/28/19 08:00 125 mls/hr ASDIR BONNIE Administration Dextrose/Sodium Chloride 1,000 mls @ 75 mls/hr 07/01/20 08:00 D5-1/2ns - IV ASDIR BONNIE Cefazolin Sodium/Dextrose 2 gm in 50 mls @ 100 mls/hr 08/27/19 18:00 08/27/19 17:17 Ancef 2 Gm Premixed Ivpb - IVPB 08/28/19 17:59 100 mls/hr Q8H-IV BONNIE Administration Lactated Ringer's 1,000 mls @ 125 mls/hr 08/27/19 14:00 08/27/19 20:39 Lactated Ringers Solution IV Not Given ASDIR BONNIE Multivitamins/Minerals/Vitamin C 1 tab 08/28/19 10:00 Tab-A-Vit - PO DAILY BONNIE Non-Formulary Medication 1 each 08/28/19 10:00 Wilver/D3/Mag11/Zinc/Case Picker/Jamel/Bor [Caltrate 600+D Plus Tablet] PO DAILY BONNIE Non-Formulary Medication 3.6 mg 08/27/19 13:15 Goserelin Acetate SQ Q30D BONNIE Ondansetron HCl 4 mg 08/27/19 14:00 Zofran Injection IVPUSH Q6H PRN NAUSEA AND/OR VOMITING Oxycodone HCl 5 mg 08/28/19 13:03 Roxicodone - PO Q4H PRN PAIN LEVEL 1-5 Oxycodone HCl 10 mg 08/27/19 13:02 Roxicodone - PO Q4H PRN PAIN LEVEL 6-10 ASSESSMENT/PLAN: 48 y/o F, pmh of Right breast cancer S/P right total mastectomy, sentenal node biopsy with dermal matrix manager treasury above muscle, currently undergoing anastrazole and zoladex therapy presents to the hospital for elective surgical removal of tissue manager treasury and flap is admitted in the ICU for post op monitoring #Neuro off sedation AOx3, cooperative, no c/o PAin meds- valium, oxycodone #Pulmonary O2 saturation>90 stable #CV RRR stable #GI NPO except po meds until tomorrow can consider advancing diet in the am colace bid for constipation post op Zofran for nausea #Renal stable LR at 125, limited to 2 bags to prevent overhydration #ID cefazolin empirically x24 hrs monitor for post signs of infxn #Heme right breast cancer, s/p surgical resection Surgical heather intact, no purulent or serosanguinus drainage. 12 cm suprapubic skin incision with heather present, surgical site closed. Periumbilical heather 3 cm, no drainage. Right breast surgical dressing intact, no drainage, mild tenderness. Cont Anastrazole cont Goserelin #DVT heparin sq #GI ppx not indicated, pt did not have a major surgery(abd, thoracic, pelvic, cranial), <48hrs in icu, not mechanically ventilated FEN monitor lytes cont LR NPO Lines peripheral Dispo: We will continue to follow the patient. Thank you for this consultative opportunity. Visit type - Emergency Visit Emergency Visit: Yes ED Registration Date: 08/27/19 Care time: The patient presented to the Emergency Department on the above date and was hospitalized for further evaluation of their emergent condition. - New Patient This patient is new to me today: Yes Date on this admission: 09/09/19 - Critical Care Critical Care patient: No ATTENDING PHYSICIAN STATEMENT I saw and evaluated the patient. I reviewed the resident's note and discussed the case with the resident. I agree with the resident's findings and plan as documented. SUBJECTIVE: OBJECTIVE: ASSESSMENT AND PLAN:
[2019-08-27] MEDS: ANASTROZOLE 1 MG TABLET PO SCH (21:36)
[2019-08-27] MEDS: DOCUSATE SODIUM 100 MG CAPSULE (FP) PO SCH (21:36)
[2019-08-28] MEDS: CEFAZOLIN 2 GM/D5W 2 GM/50 ML ML IVPB SCH ×2 (01:07→10:30)
[2019-08-28] MEDS: ACETAMINOPHEN 325 MG TABLET (FP) PO PRN ×3 (01:30→18:10)
[2019-08-28] MEDS: HEPARIN NA (PORCINE) 5,000 UNITS/ML 1ML VIAL SQ SCH ×3 (06:04→21:19)
[2019-08-28 06:28] LABS: HEMATOCRIT 35.9 % (32.4-45.2); HEMOGLOBIN 11.9 GM/dL (10.7-15.3); MCH 26.4 pg (25.7-33.7); MEAN CELL VOLUME 79.8 fl (80-96); MEAN PLT VOLUME 8.8 fl (7.5-11.1); PLATELET COUNT 237 K/MM3 (134-434); RDW 14.4 % (11.6-15.6); WHITE BLOOD COUNT 10.8 K/mm3 (4.0-10.0)
[2019-08-28 07:01] LABS: CALCIUM 8.2 mg/dL (8.5-10.1); MAGNESIUM 2.1 mg/dL (1.8-2.4); PHOSPHOROUS 3.8 mg/dL (2.5-4.9); POTASSIUM 3.6 mmol/L (3.5-5.1)
--- NOTE | 2019-08-28 08:03 | PN ---
Progress Note (short form) - Note Progress Note: PLASTIC SURGERY POD #1 s/p Removal of right breast tissue parts product analyst and RUDY reconstruction, intra-op TAP block No acute events since surgery per RN notes. Seen and examined with Dr. Peres this morning. Patient is alert. C/o mild incisional tenderness. Isha hugger in place. Using incentive spirometer as directed. Hasn't been OOB yet. Denies n/v/f/c, CP, palpitations, SOB or MEI. Last Vital Signs Temp Pulse Resp BP Pulse Ox 98.2 F 108 H 19 131/75 97 08/28/19 02:00 08/28/19 02:00 08/28/19 02:00 08/28/19 02:00 08/27/19 15:50 CBC, BMP 08/28/19 05:40 08/28/19 05:40 Output Trend 08/27/19 08/27/19 08/27/19 08/27/19 08/28/19 14:19 15:50 18:00 22:59 06:00 LLQ ANA 10 5 8 30 Right Breast ANA 15 5 5 5 RLQ ANA 3 5 5 5 Morse 200 800 300 Gen: a&o. nad Pulm: unlabored respirations on RA Right Breast: ecchymotic changes (expected). Tissue warm/viable. No signs of venous congestion. Cap refill < 3 sec. + dopplerable flow (indicated over prolene suture). ANA on bulb suction (serosang) ABD: transverse incision dressing (Prineo) intact. ANA x2 on bulb suction (seros ang). Umbo viable : morse to gravity (clear) LE: SCDs bilat. All compartments soft. No edema/swelling Problem List - Problems (1) Breast cancer, right breast Assessment/Plan: POD #1 s/p Removal of right breast tissue parts product analyst and RUDY reconstruction, intra-op TAP block, under GA - Isha Cristiangger dc'd on rounds - Cont flap checks as per protocol - Monitor/record ANA output q shift - Can dc morse once oob - PT for mobilization - must walk in a hunched over position - Cont IV ABX - Teach how to use ANA - Incentive spirometer - Pain management - Diet as tolerated - Cont to monitor in ICU - Heparin 5000 sq TID - Case Management for DC planning 08/29/19 Above plan discussed with Dr. Goel and agrees. Code(s): C50.911 - MALIGNANT NEOPLASM OF UNSP SITE OF RIGHT FEMALE BREAST Qualifiers: Breast location: overlapping sites of breast Estrogen receptor status: positive Patient sex: female Qualified Code(s): C50.811 - Malignant neoplasm of overlapping sites of right female breast; Z17.0 - Estrogen receptor positive status [ER+]
[2019-08-28] MEDS: DEXTROSE 5%-0.45% SALINE 1,000 ML IV SCH (08:45)
[2019-08-28] MEDS ORDERED: PT OWN MED DRAWER 7, Y5N ONE ×2 (08:56→20:41)
[2019-08-28] MEDS ORDERED: PANTOPRAZOLE SODIUM 40 MG VIAL IVPUSH SCH (10:00)
[2019-08-28] MEDS ORDERED: PATIENT'S OWN MEDICATION (NON-FORMULARY) (Cal/D3/Mag11/Zinc/Cop/Mang/Bor [Caltrate 600+D P PO SCH (10:00)
[2019-08-28] MEDS: CALCIUM 500MG/VIT-D 200 UNITS COMBO TABLET (FP) PO SCH (10:30)
[2019-08-28] MEDS: DOCUSATE SODIUM 100 MG CAPSULE (FP) PO SCH ×2 (10:30→21:19)
[2019-08-28] MEDS: MULTIVITAMINS (DAILY MVI) TABLET (FP) PO SCH (10:30)
[2019-08-28] MEDS ORDERED: oxyCODONE HCL 5 MG TABLET PO PRN (13:03)
--- NOTE | 2019-08-28 16:28 | PN ---
Physical Exam: SUBJECTIVE: Patient seen and examined in ICU. Stated mild abdominal discomfort at the surgical incision line rated 5/10. Tried to move from bed to chair, but felt lightheaded. Denies passing gas, nausea, vomiting. OBJECTIVE: Vital Signs Period Temp Pulse Resp BP Sys/Summers Pulse Ox Last 24 Hr 98.2 F-99.6 F 90-113 17-20 100-131/70-85 GENERAL: The patient is awake, alert, and fully oriented, in no acute distress. HEAD: NCAT. EYES: PERRL, conjunctiva clear. ENT: Ears normal, nares patent LUNGS: Breath sounds equal, clear to auscultation bilaterally, no wheezes HEART: Regular rate and rhythm, S1, S2 without murmur ABDOMEN: abdominal excision observed. Zac and surgical incision clean and intact. EXTREMITIES: warm, well-perfused, no edema. Drain: 2 drains present, draining serosanguinous fluid. Laboratory Last Values WBC 10.8 K/mm3 (4.0-10.0) H 08/28/19 05:40 RBC 4.50 M/mm3 (3.60-5.2) 08/28/19 05:40 Hgb 11.9 GM/dL (10.7-15.3) 08/28/19 05:40 Hct 35.9 % (32.4-45.2) 08/28/19 05:40 MCV 79.8 fl (80-96) L 08/28/19 05:40 MCH 26.4 pg (25.7-33.7) 08/28/19 05:40 MCHC 33.0 g/dl (32.0-36.0) 08/28/19 05:40 RDW 14.4 % (11.6-15.6) 08/28/19 05:40 Plt Count 237 K/MM3 (134-434) 08/28/19 05:40 MPV 8.8 fl (7.5-11.1) 08/28/19 05:40 Sodium 140 mmol/L (136-145) 08/28/19 05:40 Potassium 3.6 mmol/L (3.5-5.1) 08/28/19 05:40 Chloride 105 mmol/L (98-107) 08/28/19 05:40 Carbon Dioxide 26 mmol/L (21-32) 08/28/19 05:40 Anion Gap 9 MMOL/L (8-16) 08/28/19 05:40 BUN 12.0 mg/dL (7-18) 08/28/19 05:40 Creatinine 1.0 mg/dL (0.55-1.3) 08/28/19 05:40 Est GFR (CKD-EPI)AfAm 77.15 08/28/19 05:40 Est GFR (CKD-EPI)NonAf 66.57 08/28/19 05:40 Random Glucose 113 mg/dL (74-106) H 08/28/19 05:40 Calcium 8.2 mg/dL (8.5-10.1) L 08/28/19 05:40 Phosphorus 3.8 mg/dL (2.5-4.9) 08/28/19 05:40 Magnesium 2.1 mg/dL (1.8-2.4) 08/28/19 05:40 Serum , Qual Negative 08/27/19 06:30 Blood Type O NEGATIVE 08/27/19 06:30 Antibody Screen Negative 08/27/19 06:30 Active Medications Acetaminophen (Tylenol -) 650 mg PO Q6H PRN PRN Reason: Fever Or Pain Last Admin: 08/28/19 10:26 Dose: 650 mg Documented by: Anastrozole (Arimidex -) 1 mg PO HS [facility] Last Admin: 08/27/19 21:36 Dose: 1 mg Documented by: Calcium Carbonate/Cholecalciferol (Os-Wilver 500+D -) 1 tab PO DAILY [facility] Last Admin: 08/28/19 10:30 Dose: 1 tab Documented by: Diazepam (Valium -) 5 mg PO Q8H PRN PRN Reason: ANXIETY Docusate Sodium (Colace -) 100 mg PO BID [facility] Last Admin: 08/28/19 10:30 Dose: 100 mg Documented by: Fentanyl (Sublimaze Injection -) 50 mcg IVPUSH [id number] PRN PRN Reason: PAIN-PACU ORDER X 4 DOSES ONLY Heparin Sodium (Porcine) (Heparin -) 5,000 unit SQ TID [facility] Last Admin: 08/28/19 14:18 Dose: 5,000 unit Documented by: Dextrose/Sodium Chloride (D5-1/2ns -) 1,000 mls @ 75 mls/hr IV ASDIR [facility] Stop: 08/29/19 21:19 Last Admin: 08/28/19 08:45 Dose: 75 mls/hr Documented by: Cefazolin Sodium/Dextrose (Ancef 2 Gm Premixed Ivpb -) 2 gm in 50 mls @ 100 mls/hr IVPB Q8H-IV BONNIE Stop: 08/28/19 17:59 Last Admin: 08/28/19 10:30 Dose: 100 mls/hr Documented by: Multivitamins/Minerals/Vitamin C (Tab-A-Vit -) 1 tab PO DAILY [facility] Last Admin: 08/28/19 10:30 Dose: 1 tab Documented by: Non-Formulary Medication (Goserelin Acetate) 3.6 mg SQ Q30D BONNIE Ondansetron HCl (Zofran Injection) 4 mg IVPUSH Q6H PRN PRN Reason: NAUSEA AND/OR VOMITING Oxycodone HCl (Roxicodone -) 10 mg PO Q4H PRN PRN Reason: PAIN LEVEL 6-10 Last Admin: 08/28/19 10:27 Dose: 10 mg Documented by: Oxycodone HCl (Roxicodone -) 5 mg PO Q4H PRN PRN Reason: PAIN LEVEL 1-5 ASSESSMENT/PLAN: 48 year old female with PMH R breast cancer s/p resection 10/2018 is post-op day 1 of elective removal of R breast tissue qa automation engineer and RUDY reconstruction admitted to ICU to monitor flap. POD #1 s/p Removal of right breast tissue qa automation engineer and RUDY reconstruction. #Neuro A&Ox3 Will continue to monitor. #Cardio No events on tele. Will continue to monitor. #Pulm Incentive spirometer Explained importance of using spirometer. #ID s/p Ancef (08/26) Febrile at Tmax 101. Tylenol PRN. Continue to monitor. #Skin Zac and excision clean and intact. Continue flap checks as per protocol by surgery #Tubes, lines, drain Olpez dc'ed 08/27 Monitor/record ANA output q shift Total drainage: 80 mL #Ppx Heparin 5k TID #Diet Advance to clears as tolerated #Dispo: called perinatal social worker for possible discharge 08/29/2019. Confirmed visiting nurse to follow up at home. Continue to monitor in ICU. Visit type - Emergency Visit Emergency Visit: Yes ED Registration Date: 08/27/19 Care time: The patient presented to the Emergency Department on the above date and was hospitalized for further evaluation of their emergent condition. - New Patient This patient is new to me today: Yes Date on this admission: 08/28/19 - Critical Care Critical Care patient: Yes Total Critical Care Time (in minutes): 37 Critical Care Statement: The care of this patient involved high complexity decision making to prevent further life threatening deterioration of the patient's condition and/or to evaluate & treat vital organ system(s) failure or risk of failure. ATTENDING PHYSICIAN STATEMENT I saw and evaluated the patient. I reviewed the resident's note and discussed the case with the resident. I agree with the resident's findings and plan as documented. SUBJECTIVE: OBJECTIVE: ASSESSMENT AND PLAN:
--- NOTE | 2019-08-28 16:36 | PN ---
Teaching Attending Note Name of Resident: Fe Caldwell ATTENDING PHYSICIAN STATEMENT I saw and evaluated the patient. I reviewed the resident's note and discussed the case with the resident. I agree with the resident's findings and plan as documented. SUBJECTIVE: Patient seen and examined in the ICU. Awake and alert. Mild pain/discomfort at the surgical site, mostly abdomen. No CP or SOB. (+) good doppler signals. Intake & Output 08/25/19 08/26/19 08/27/19 08/28/19 23:59 23:59 23:59 23:59 Intake Total 2300 1960 Output Total 3461 380 Balance -1161 1580 Weight 210 lb Last Vital Signs Temp Pulse Resp BP Pulse Ox 98.6 F 94 H 18 124/70 97 08/28/19 13:29 08/28/19 15:00 08/28/19 15:00 08/28/19 15:00 08/27/19 15:50 Active Medications Acetaminophen (Tylenol -) 650 mg PO Q6H PRN PRN Reason: Fever Or Pain Last Admin: 08/28/19 10:26 Dose: 650 mg Documented by: Anastrozole (Arimidex -) 1 mg PO HS [facility] Last Admin: 08/27/19 21:36 Dose: 1 mg Documented by: Calcium Carbonate/Cholecalciferol (Os-Wilver 500+D -) 1 tab PO DAILY [facility] Last Admin: 08/28/19 10:30 Dose: 1 tab Documented by: Diazepam (Valium -) 5 mg PO Q8H PRN PRN Reason: ANXIETY Docusate Sodium (Colace -) 100 mg PO BID [facility] Last Admin: 08/28/19 10:30 Dose: 100 mg Documented by: Fentanyl (Sublimaze Injection -) 50 mcg IVPUSH [id number] PRN PRN Reason: PAIN-PACU ORDER X 4 DOSES ONLY Heparin Sodium (Porcine) (Heparin -) 5,000 unit SQ TID [facility] Last Admin: 08/28/19 14:18 Dose: 5,000 unit Documented by: Dextrose/Sodium Chloride (D5-1/2ns -) 1,000 mls @ 75 mls/hr IV ASDIR [facility] Stop: 08/29/19 21:19 Last Admin: 08/28/19 08:45 Dose: 75 mls/hr Documented by: Cefazolin Sodium/Dextrose (Ancef 2 Gm Premixed Ivpb -) 2 gm in 50 mls @ 100 mls/hr IVPB Q8H-IV [facility] Stop: 08/28/19 17:59 Last Admin: 08/28/19 10:30 Dose: 100 mls/hr Documented by: Multivitamins/Minerals/Vitamin C (Tab-A-Vit -) 1 tab PO DAILY [facility] Last Admin: 08/28/19 10:30 Dose: 1 tab Documented by: Non-Formulary Medication (Goserelin Acetate) 3.6 mg SQ Q30D [facility] Ondansetron HCl (Zofran Injection) 4 mg IVPUSH Q6H PRN PRN Reason: NAUSEA AND/OR VOMITING Oxycodone HCl (Roxicodone -) 10 mg PO Q4H PRN PRN Reason: PAIN LEVEL 6-10 Last Admin: 08/28/19 10:27 Dose: 10 mg Documented by: Oxycodone HCl (Roxicodone -) 5 mg PO Q4H PRN PRN Reason: PAIN LEVEL 1-5 GENERAL: Awake, alert, and fully oriented, NAD EYES: sclera anicteric, conjunctiva clear. EARS, NOSE, THROAT: Dry mucous membranes. NECK: Normal range of motion, supple without lymphadenopathy, JVD, or masses. LUNGS: Clear to auscultation bilaterally. No wheezes, and no crackles. Breast: Right breast surgical dressing intact, no drainage, mild tenderness. HEART: Regular rate and rhythm, normal S1 and S2 without murmur, rub or gallop. ABDOMEN: Soft, nontender, not distended, normoactive bowel sounds, no guarding, no rebound, no masses. Surgical heather intact, no purulent or serosanguinus drainage. 12 cm suprapubic skin incision with heather present, surgical site closed. Periumbilical heather 3 cm, no drainage. MUSCULOSKELETAL: Normal range of motion at all joints. No bony deformities or tenderness. UPPER EXTREMITIES: 2+ pulses, warm, well-perfused. No cyanosis. No clubbing. No peripheral edema. LOWER EXTREMITIES: 2+ pulses, warm, well-perfused. No calf tenderness. No peripheral edema. 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
[2019-08-28] MEDS: ANASTROZOLE 1 MG TABLET PO SCH (21:19)
[2019-08-29] MEDS ORDERED: PT OWN MED DRAWER 7, Y5N ONE ×2 (03:24→09:24)
[2019-08-29] MEDS: HEPARIN NA (PORCINE) 5,000 UNITS/ML 1ML VIAL SQ SCH (06:03)
[2019-08-29 07:30] LABS: BASO % 0.4 % (0-2.0); HEMATOCRIT 36.1 % (32.4-45.2); HEMOGLOBIN 11.9 GM/dL (10.7-15.3); LYMPH % 14.5 % (8-40); MCH 26.6 pg (25.7-33.7); MEAN CELL VOLUME 80.6 fl (80-96); MEAN PLT VOLUME 8.9 fl (7.5-11.1); MONO % 7.8 % (3.8-10.2); NEUT % 77.3 % (42.8-82.8); PLATELET COUNT 242 K/MM3 (134-434); RBC 4.48 M/mm3 (3.60-5.2); RDW 14.2 % (11.6-15.6); WHITE BLOOD COUNT 11.5 K/mm3 (4.0-10.0)
--- NOTE | 2019-08-29 08:24 | PN ---
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 C/o mild incisional tenderness. Using incentive spirometer as directed. Was oob w/ PT yesterday but limited secondary to feeling faint/weak. Denies n/v/f/c, CP, palpitations, SOB or MEI. Last Vital Signs Temp Pulse Resp BP Pulse Ox 98.2 F 98 H 19 118/73 96 08/29/19 02:00 08/29/19 06:00 08/29/19 06:00 08/29/19 06:00 08/28/19 19:50 Trend 08/28/19 08/29/19 05:40 05:57 WBC 10.8 H 11.5 H 24 Hr ANA OUTPUT 08/28/19 08/28/19 08/28/19 08/29/19 08/29/19 06:00 18:28 23:00 03:00 06:57 LLQ ANA 30 44 20 10 0 Right Breast ANA 5 10 5 0 RLQ ANA 5 50 5 5 5 Gen: a&o. nad Pulm: unlabored respirations on RA Right Breast: ecchymotic changes (expected). Tissue warm/viable. No signs of venous congestion. Cap refill < 3 sec. + dopplerable flow (indicated over prolene suture). ANA on bulb suction (serosang) ABD: transverse incision dressing (Prineo) intact. ANA x2 on bulb suction (serosang). Umbo viable : morse to gravity (clear) LE: SCDs bilat. All compartments soft. 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 Febrile yesterday at 6PM. Mild rise in WBC - Cont flap checks as per protocol - Monitor/record ANA output q shift - Can dc morse once oob - PT for mobilization - must walk in a hunched over position - oob to chair - Cont IV ABX - Teach how to use ANA - Incentive spirometer - Pain management - Diet as tolerated - Cont to monitor in ICU - Heparin 5000 sq TID - trend WBC - if spikes temp again recommend fever work-up - Case Management for DC planning Above plan discussed with Dr. Tapia and agrees. Code(s): C50.911 - MALIGNANT NEOPLASM OF UNSP SITE OF RIGHT FEMALE BREAST Qualifiers: Breast location: overlapping sites of breast Estrogen receptor status: positive Patient sex: female Qualified Code(s): C50.811 - Malignant neoplasm of overlapping sites of right female breast; Z17.0 - Estrogen receptor positive status [ER+]
[2019-08-29] MEDS: DOCUSATE SODIUM 100 MG CAPSULE (FP) PO SCH (09:27)
[2019-08-29] MEDS: MULTIVITAMINS (DAILY MVI) TABLET (FP) PO SCH (09:27)
[2019-08-29] MEDS: ACETAMINOPHEN 325 MG TABLET (FP) PO PRN (09:27)
[2019-08-29] MEDS: CALCIUM 500MG/VIT-D 200 UNITS COMBO TABLET (FP) PO SCH (09:28)
[2019-08-29] MEDS ORDERED: CEFAZOLIN 1 GM in DEXTROSE 5%-WATER - 50 ML IVPB SCH (10:08)
[2019-08-29 10:42] VITALS: TEMP 99.7
[2019-08-29] MEDS ORDERED: DEXTROSE 5%-WATER - 50 ML IVPB ONE (10:53)
[2019-08-29] MEDS ORDERED: ceFAZolin SODIUM 1 GM VIAL ONE (10:53)
[2019-08-29] MEDS: DEXTROSE 5%-0.45% SALINE 1,000 ML IV SCH (11:08)
[2019-08-29 12:04] VITALS: BP 103/65; PULSE 92
--- NOTE | 2019-08-29 12:28 | PN ---
Physical Exam: SUBJECTIVE: Patient seen and examined today. Pt stated improvement of pain at abdominal excision site. OBJECTIVE: Vital Signs Period Temp Pulse Resp BP Sys/Summers Pulse Ox Last 24 Hr 98.2 F-99.7 F 84-108 11-19 100-124/65-85 96 GENERAL: The patient is awake, alert, and fully oriented, in no acute distress. HEAD: NCAT EYES: PERRL ENT: Ears normal, nares patent LUNGS: Breath sounds equal, clear to auscultation bilaterally, no wheezes, no crackles HEART: Regular rate and rhythm, S1, S2 without murmur ABDOMEN: Observed surgical site in lower abdomen. Clean and intact. Mildly tender to palpation. Drains draining serosanguinous fluid. EXTREMITIES:warm, well-perfused, no edema. SKIN: Warm, dry, surgical site is clean and intact. Laboratory Last Values WBC 11.5 K/mm3 (4.0-10.0) H 08/29/19 05:57 RBC 4.48 M/mm3 (3.60-5.2) 08/29/19 05:57 Hgb 11.9 GM/dL (10.7-15.3) 08/29/19 05:57 Hct 36.1 % (32.4-45.2) 08/29/19 05:57 MCV 80.6 fl (80-96) 08/29/19 05:57 MCH 26.6 pg (25.7-33.7) 08/29/19 05:57 MCHC 33.0 g/dl (32.0-36.0) 08/29/19 05:57 RDW 14.2 % (11.6-15.6) 08/29/19 05:57 Plt Count 242 K/MM3 (134-434) 08/29/19 05:57 MPV 8.9 fl (7.5-11.1) 08/29/19 05:57 Absolute Neuts (auto) 8.9 K/mm3 (1.5-8.0) H 08/29/19 05:57 Neutrophils % 77.3 % (42.8-82.8) 08/29/19 05:57 Lymphocytes % 14.5 % (8-40) 08/29/19 05:57 Monocytes % 7.8 % (3.8-10.2) 08/29/19 05:57 Eosinophils % 0.0 % (0-4.5) 08/29/19 05:57 Basophils % 0.4 % (0-2.0) 08/29/19 05:57 Nucleated RBC % 0 % (0-0) 08/29/19 05:57 Sodium 140 mmol/L (136-145) 08/28/19 05:40 Potassium 3.6 mmol/L (3.5-5.1) 08/28/19 05:40 Chloride 105 mmol/L (98-107) 08/28/19 05:40 Carbon Dioxide 26 mmol/L (21-32) 08/28/19 05:40 Anion Gap 9 MMOL/L (8-16) 08/28/19 05:40 BUN 12.0 mg/dL (7-18) 08/28/19 05:40 Creatinine 1.0 mg/dL (0.55-1.3) 08/28/19 05:40 Est GFR (CKD-EPI)AfAm 77.15 08/28/19 05:40 Est GFR (CKD-EPI)NonAf 66.57 08/28/19 05:40 Random Glucose 113 mg/dL (74-106) H 08/28/19 05:40 Calcium 8.2 mg/dL (8.5-10.1) L 08/28/19 05:40 Phosphorus 3.8 mg/dL (2.5-4.9) 08/28/19 05:40 Magnesium 2.1 mg/dL (1.8-2.4) 08/28/19 05:40 Serum , Qual Negative 08/27/19 06:30 Blood Type O NEGATIVE 08/27/19 06:30 Antibody Screen Negative 08/27/19 06:30 Active Medications Acetaminophen (Tylenol -) 650 mg PO Q6H PRN PRN Reason: Fever Or Pain Last Admin: 08/29/19 09:27 Dose: 650 mg Documented by: Anastrozole (Arimidex -) 1 mg PO HS [facility] Last Admin: 08/28/19 21:19 Dose: 1 mg Documented by: Calcium Carbonate/Cholecalciferol (Os-Wilver 500+D -) 1 tab PO DAILY [facility] Last Admin: 08/29/19 09:28 Dose: 1 tab Documented by: Diazepam (Valium -) 5 mg PO Q8H PRN PRN Reason: ANXIETY Docusate Sodium (Colace -) 100 mg PO BID [facility] Last Admin: 08/29/19 09:27 Dose: 100 mg Documented by: Fentanyl (Sublimaze Injection -) 50 mcg IVPUSH [id number] PRN PRN Reason: PAIN-PACU ORDER X 4 DOSES ONLY Heparin Sodium (Porcine) (Heparin -) 5,000 unit SQ TID [facility] Last Admin: 08/29/19 06:03 Dose: 5,000 unit Documented by: Dextrose/Sodium Chloride (D5-1/2ns -) 1,000 mls @ 75 mls/hr IV ASDIR [facility] Stop: 08/29/19 21:19 Last Admin: 08/29/19 11:08 Dose: Not Given Documented by: Cefazolin Sodium 1 gm/ (Dextrose) 50 mls @ 100 mls/hr IVPB Q8H-IV [facility] Last Admin: 08/29/19 10:56 Dose: 100 mls/hr Documented by: Multivitamins/Minerals/Vitamin C (Tab-A-Vit -) 1 tab PO DAILY [facility] Last Admin: 08/29/19 09:27 Dose: 1 tab Documented by: Non-Formulary Medication (Goserelin Acetate) 3.6 mg SQ Q30D [facility] Ondansetron HCl (Zofran Injection) 4 mg IVPUSH Q6H PRN PRN Reason: NAUSEA AND/OR VOMITING Oxycodone HCl (Roxicodone -) 10 mg PO Q4H PRN PRN Reason: PAIN LEVEL 6-10 Last Admin: 08/28/19 10:27 Dose: 10 mg Documented by: Oxycodone HCl (Roxicodone -) 5 mg PO Q4H PRN PRN Reason: PAIN LEVEL 1-5 Last Admin: 08/28/19 18:50 Dose: 5 mg Documented by: ASSESSMENT/PLAN: 48 year old female with PMH of R breast cancer s/p resection 10/2018 is post-op day 2 of 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 Pt had 1 episode of fever Tmax 101.7 at 6PM yesterday, but has since been afebrile. 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 #Neuro A&Ox3 #Cardio No events on tele. #Pulm Encouraged use of incentive spirometer. Explained importance of using spirometer. #ID s/p Ancef (08/26) Febrile at Tmax 101.7 Tylenol PRN. Continue to monitor. #Skin [place] and excision clean and intact. Will have follow-up from visiting nurse. #Tubes, lines, drain Lopez dc'ed 08/27 Monitor/record ANA output Total drainage: 15 mL #Ppx Early ambulation #Diet Advance to full diet as tolerated #Dispo: Discharge to home. Visiting nurse to follow up. Visit type - Emergency Visit Emergency Visit: Yes ED Registration Date: 08/27/19 Care time: The patient presented to the Emergency Department on the above date and was hospitalized for further evaluation of their emergent condition. - New Patient This patient is new to me today: No - Critical Care Critical Care patient: Yes Total Critical Care Time (in minutes): 35 Critical Care Statement: The care of this patient involved high complexity decision making to prevent further life threatening deterioration of the patient's condition and/or to evaluate & treat vital organ system(s) failure or risk of failure. ATTENDING PHYSICIAN STATEMENT I saw and evaluated the patient. I reviewed the resident's note and discussed the case with the resident. I agree with the resident's findings and plan as documented. SUBJECTIVE: OBJECTIVE: ASSESSMENT AND PLAN:
--- NOTE | 2019-08-29 13:35 | PN ---
Teaching Attending Note Name of Resident: Fe Caldwell ATTENDING PHYSICIAN STATEMENT I saw and evaluated the patient. I reviewed the resident's note and discussed the case with the resident. I agree with the resident's findings and plan as documented. SUBJECTIVE: Patient seen and examined in the ICU. Awake and alert. Appears clinically better. No CP or SOB. (+) good doppler signals. Intake & Output 08/26/19 08/27/19 08/28/19 08/29/19 23:59 23:59 23:59 23:59 Intake Total 2300 3060 540 Output Total 3461 1514 85 Balance -1161 1546 455 Weight 210 lb 206 lb 9.17 oz Last Vital Signs Temp Pulse Resp BP Pulse Ox 99.7 F H 92 H 18 103/65 96 08/29/19 10:00 08/29/19 12:03 08/29/19 12:03 08/29/19 12:03 08/28/19 19:50 Active Medications Acetaminophen (Tylenol -) 650 mg PO Q6H PRN PRN Reason: Fever Or Pain Last Admin: 08/29/19 09:27 Dose: 650 mg Documented by: Anastrozole (Arimidex -) 1 mg PO HS [facility] Last Admin: 08/28/19 21:19 Dose: 1 mg Documented by: Calcium Carbonate/Cholecalciferol (Os-Wilver 500+D -) 1 tab PO DAILY [facility] Last Admin: 08/29/19 09:28 Dose: 1 tab Documented by: Diazepam (Valium -) 5 mg PO Q8H PRN PRN Reason: ANXIETY Docusate Sodium (Colace -) 100 mg PO BID [facility] Last Admin: 08/29/19 09:27 Dose: 100 mg Documented by: Fentanyl (Sublimaze Injection -) 50 mcg IVPUSH [id number] PRN PRN Reason: PAIN-PACU ORDER X 4 DOSES ONLY Heparin Sodium (Porcine) (Heparin -) 5,000 unit SQ TID [facility] Last Admin: 08/29/19 06:03 Dose: 5,000 unit Documented by: Dextrose/Sodium Chloride (D5-1/2ns -) 1,000 mls @ 75 mls/hr IV ASDIR [facility] Stop: 08/29/19 21:19 Last Admin: 08/29/19 11:08 Dose: Not Given Documented by: Cefazolin Sodium 1 gm/ (Dextrose) 50 mls @ 100 mls/hr IVPB Q8H-IV [facility] Last Admin: 08/29/19 10:56 Dose: 100 mls/hr Documented by: Multivitamins/Minerals/Vitamin C (Tab-A-Vit -) 1 tab PO DAILY [facility] Last Admin: 08/29/19 09:27 Dose: 1 tab Documented by: Non-Formulary Medication (Goserelin Acetate) 3.6 mg SQ Q30D [facility] Ondansetron HCl (Zofran Injection) 4 mg IVPUSH Q6H PRN PRN Reason: NAUSEA AND/OR VOMITING Oxycodone HCl (Roxicodone -) 10 mg PO Q4H PRN PRN Reason: PAIN LEVEL 6-10 Last Admin: 08/28/19 10:27 Dose: 10 mg Documented by: Oxycodone HCl (Roxicodone -) 5 mg PO Q4H PRN PRN Reason: PAIN LEVEL 1-5 Last Admin: 08/28/19 18:50 Dose: 5 mg Documented by: GENERAL: Awake, alert, and fully oriented, NAD EYES: sclera anicteric, conjunctiva clear. EARS, NOSE, THROAT: Dry mucous membranes. NECK: Normal range of motion, supple without lymphadenopathy, JVD, or masses. LUNGS: Clear to auscultation bilaterally. No wheezes, and no crackles. Breast: Right breast surgical dressing intact, no drainage, mild tenderness. HEART: Regular rate and rhythm, normal S1 and S2 without murmur, rub or gallop. ABDOMEN: Soft, nontender, not distended, normoactive bowel sounds, no guarding, no rebound, no masses. Surgical heather intact, no purulent or serosanguinus drainage. 12 cm suprapubic skin incision with heather present, surgical site closed. Periumbilical heather 3 cm, no drainage. MUSCULOSKELETAL: Normal range of motion at all joints. No bony deformities or tenderness. UPPER EXTREMITIES: 2+ pulses, warm, well-perfused. No cyanosis. No clubbing. No peripheral edema. LOWER EXTREMITIES: 2+ pulses, warm, well-perfused. No calf tenderness. No peripheral edema. 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
--- NOTE | 2019-08-29 17:46 | PATH ---
Surgical Pathology Report Patient Name: SOHAIL SUAREZ [facility] [place]. Rec. #: [id number] /Age/Gender: 1970 (Age: 48) / F Account: [id number] [facility] Taken: 08/27/2019 Received: 08/27/2019 Reported: 08/29/2019 Physicians: Adair Goel MD Specimen(s) Received A: MASTECTOMY SCAR RIGHT BREAST B: RIGHT BREAST CAPSULE C: REMOVED BREAST IMPLANT RIGHT D: RIGHT INTERNAL MAMMARY LYMPH NODE E: ABDOMINAL FAT AND SKIN Clinical History Breast cancer Final Diagnosis A. MASTECTOMY SCAR, RIGHT BREAST, EXCISION: FIBROUS CAPSULE WITH FOCAL CHRONIC INFLAMMATION AND HISTIOCYTIC REACTION. PORTIONS OF SKIN WITH SCAR. B. RIGHT BREAST CAPSULE, EXCISION: FIBROUS CAPSULE WITH FOCAL CHRONIC INFLAMMATION AND HISTIOCYTIC REACTION. C. REMOVED RIGHT BREAST IMPLANT: CONSISTENT WITH A BREAST IMPLANT. GROSS EXAMINATION ONLY. D. RIGHT INTERNAL MAMMARY LYMPH NODE, EXCISION: ONE BENIGN LYMPH NODE. E. ABDOMINAL FAT AND SKIN, ABDOMINOPLASTY: PORTIONS SKIN AND UNDERLYING SUBCUTANEOUS TISSUE, GROSSLY UNREMARKABLE. Electronically Signed Neda Seay M.D. Gross Description A. Received in formalin labeled "mastectomy scar right breast," are 7 ortega, irregular, unoriented portions of fibrous capsule and skin ranging from 1.0 x 0.3 x 0.2 cm to 6.0 x 1.6 x 0.2 cm. The epidermal surface of the largest portion of skin displays a central, linear scar. Research Spec sections are submitted in one cassette. B. Received in formalin labeled "right breast capsule," are 2 ortega, irregular, unoriented portions of fibrous capsule measuring 4.4 x 3.3 x 0.4 cm and 9.2 x 5.1 x 0.2 cm. No discrete masses are identified. Research Spec sections are submitted in one cassette. C. Received fresh labeled "removed right breast implant," is a 14.3 x 11.0 x 5.0 cm clear, intact, rubbery breast implant. No soft tissue is present. No sections are submitted, gross only. D. Received in formalin labeled "right internal mammary lymph node," is a 1.0 x 0.8 x 0.3 cm ortega portion of soft tissue, consistent with a lymph node. The specimen is submitted in toto in one cassette. E. Received in formalin labeled "abdominal fat and skin," is a 719 g aggregate of 3 ortega, irregular, unoriented portions of skin with underlying soft tissue measuring 21.0 x 16.5 x 4.5 cm in aggregate. The epidermal surfaces are ortega and unremarkable. Sectioning reveals unremarkable underlying soft tissue. No sections are submitted, gross only. 08/27/2019 [facility]08/27/2019
--- NOTE | 2019-09-02 14:37 | OP ---
DATE OF OPERATION: 08/27/2019 PREOPERATIVE DIAGNOSES: 1. Personal history right breast cancer. 2. Acquired absence of right breast and nipple. POSTOPERATIVE DIAGNOSES: 1. Personal history right breast cancer. 2. Acquired absence of right breast and nipple. PROCEDURE: 1. Removal of right breast tissue bmw service technician with open periprosthetic capsulectomy and capsulotomies. 2. Right breast reconstruction with deep inferior epigastric label tacker, microvascular free flap (920 g). 3. Partial resection of right 3rd rib. 4. Exploration of right internal mammary vessels with extensive adventitiectomies. 5. Right internal mammary lymph node excision. 6. Intraoperative angiograph of right mastectomy skin flaps and deep inferior epigastric label tacker flap using indocyanine green. 7. Processing interpretation of intraoperative angiography images. 8. Bilateral ultrasound-guided transverse abdominis plane regional nerve blocks. ATTENDING SURGEON: Curtis Pleitez MD CO-SURGEON: Rafiq Tapia MD ANESTHESIA: General endotracheal. ESTIMATED BLOOD LOSS: 100 mL. SPECIMENS: 1. Right breast tissue bmw service technician for gross examination only. 2. Right breast capsule to Pathology. 3. Right internal mammary lymph node to Pathology. DRAINS: 1. Number 15 round Gonsalo drain x1 to right breast. 2. Number 15 round Gonsalo drain x2 to abdomen. COMPLICATIONS: None. CONDITION: Stable to recovery room, extubated. INDICATIONS: The patient is a 48-year-old female with a history of right breast cancer who has previously undergone a right skin-sparing mastectomy and immediate reconstruction with a prepectoral tissue bmw service technician. The patient has undergone successful expansion and is now brought back to the operating room today for removal of the right breast tissue bmw service technician and right breast reconstruction using autologous tissue. The risks, benefits, and alternatives of the reconstructive procedure were discussed with the patient preoperatively in detail and all questions were answered. The risks included but are not limited to bleeding, infection, pain, need for revision or further surgery, partial or complete flap loss, partial or complete skin loss, damage to nearby structures including nerves, arteries, veins, and tendons. DESCRIPTION OF PROCEDURE: After proper identification and marking of the patient in the preoperative holding area, the patient was transported to the operating room and placed supine on the table. Anesthesia monitors were applied. Intravenous access was established. General anesthesia was administered and the patient was intubated without difficulty. SCD boots were applied to bilateral lower extremities. Then, 5000 units of subcutaneous heparin were then given. Intravenous antibiotics were then given. At this point, a Lopez catheter was placed. The patient's bilateral breasts as well as abdomen and flanks were prepped and draped in the usual sterile fashion. After a timeout was performed, Dr. Tapia and I began the reconstruction, working independently as co-surgeons with separate instrument set ups. Attention was first turned towards the abdomen where skin hooks were placed at the 12 o'clock and 6 o'clock positions of the umbilicus. The umbilicus was circumferentially incised with a number 15-blade. A periumbilical dissection was then performed with Metzenbaum scissors with care taken to leave adequate periumbilical fat. Next, the superior and inferior limbs of the lower abdominal flap were incised with a number 10-blade. The superior limb was carried down to the full-thickness subcutaneous tissue with electrocautery with care taken to bevel slightly outwards. At the level of the anterior abdominal wall, the superior abdominal skin flap was raised to the xiphoid process in the midline and the costal margin bilaterally. At this point, the inferior limb of the lower abdominal incision was carried down through the subcutaneous tissue in a [id number] fashion. Bilateral superficial inferior epigastric rings were identified. More proximal dissections were performed along these veins using microvascular instruments and techniques until adequate length and caliber had been achieved. Once this was achieved, bilateral superficial inferior epigastric veins were ligated and divided. The remainder of the subcutaneous tissue was then dissected down to the anterior abdominal wall. At this point, attention was turned towards the patient's left lower abdomen for harvesting of the RUDY flap. Based on the patient's preoperative imaging, there were noted to be dominant lateral perforators. Bipolar electrocautery was used to dissect just above the level of the anterior abdominal wall fascia from a [id number] direction. Along the lateral perforators, there were noted to be 3 dominant perforators and the decision was made to base the microvascular free flap off of these lateral perforators. Therefore, the perforators were circumferentially dissected to the fascia. The fascia was then opened superiorly and inferiorly as well as the intervening fascia between the perforators. At this point, individual retrograde label tacker dissection was performed through the full thickness of the rectus abdominis muscle fibers. Care was taken to divide the muscle fibers longitudinally as much as possible. Muscular side branches were individually identified, circumferentially dissected, ligated, and divided. The individual perforators were dissected down to their take-offs from the inferior epigastric pedicle. The superior continuation of the pedicle was circumferentially dissected, ligated, and divided. At this point, a more proximal pedicle dissection was performed until adequate length and caliber had been achieved. The remainder of the lower abdominal flap was then raised off of the anterior abdominal wall, such that it was based solely on the dominant perforators on the left side. At this point, a Doppler signal was achieved in the skin panel and marked with a 5-0 Prolene suture. A circular skin panel was designed around the Doppler signal and this was incised. At this point, zones 3 and 4 were excised and discarded. The flap was temporarily stapled in place. At this point, the microvascular free flap was deepithelialized. Next, attention was turned towards intraoperative angiography. The spine angiography system was brought into the field and was sterilely draped. A 5 mL intravenous injection of indocyanine green was given and angiography of the right mastectomy skin flap as well as the lower abdominal flap was performed. The angiography images were then processed and relative perfusion data was used to assess the viability of all tissue. There was noted to be good perfusion to all zones of the mastectomy skin flap as well as the lower abdominal free flap. Once angiography was completed, attention was turned towards the right breast for harvesting of recipient vessels. The patient's previous right breast scar was incised with a number 10 blade. The dissection was carried down through the full-thickness of the mastectomy skin flaps until the underlying prepectoral tissue bmw service technician capsule was encountered. The capsule was incised and the underlying tissue bmw service technician was removed intact and passed off of the field for gross examination only. At this point, a periprosthetic capsulectomy was performed along the medal aspects of the pocket on the skin flap as well as chest wall. This resected capsule was passed off of the field to be sent to Pathology. At this point, a circumferential capsulotomy was performed and radial score capsulotomies were performed in order to increase lower pole expansion. Once this was completed, the right breast pocket was irrigated and hemostasis was ensured. A local field block of the anterior and lateral chest [place] were then performed using a local anesthetic mixture of 20 mL of Exparel, 30 mL of 0.25% Marcaine, and 80 mL of normal saline. A total of 40 mL of this local anesthetic mixture were injected into the anterior and lateral chest [place]. Once this was completed, self-retaining retractors were placed. The interspace between the 2nd and 3rd ribs was identified. Electrocautery was used to divide the pectoralis major muscles overlying this interspace. The muscle fibers were then carefully retracted. At this point, the periosteum and perichondrium on the superficial surface of the 3rd rib was incised with electrocautery. A circumferential subperiosteal and subperichondrial dissection was then performed. A large rongeur was then used to resect the right 3rd rib at the costochondral junction. Once an adequate postage stamp-sized piece of rib had been resected, attention was turned towards the underlying internal mammary vessels. The periosteum and perichondrium on the deep surface were carefully incised and the underlying internal mammary vessels were identified. There was noted to be a single artery and a single medial vein. At this point, a formal exploration of the vessels was performed using microvascular instruments and technique. Extensive adventitiectomies were performed along the artery as well as the accompanying vein. During the vein exploration, there was noted to be an internal mammary lymph node wrapped around the vein. Bipolar electrocautery was used to perform circumferential dissection around this internal mammary lymph node and it was resected and passed off of the field to be sent to Pathology. Once the recipient vessels were completely prepared, attention was turned towards the microvascular transfer. The left-sided lower abdominal flap was ligated and divided at the most proximal extent of the pedicle dissection. It was placed on a sterile scale and noted to weigh 920 grams. It was brought up to the right breast pocket where it was temporarily stapled in place. At this point, the microvascular anastomoses were performed. A 3.0-mm [employer] human resources trainee was used to anastomose the internal mammary vein to the single dominant vein of the inferior epigastric system. Release of all clamps revealed good back fill across this anastomosis. At this point, a primary Kay anastomosis was performed between the internal mammary artery and inferior epigastric artery using an 8-0 nylon suture in a simple running fashion. Release of all clamps revealed good flow across this anastomosis as well as good perfusion of the microvascular free flap. There was also noted to be good dermal bleeding as well as a strong biphasic Doppler signal on the skin panel. At this point, attention was turned towards a second venous anastomosis. A 3.0-mm [employer] human resources trainee was used to anastomose the superficial inferior epigastric vein to the retrograde stump of the internal mammary vein. Release of all clamps revealed good flow across this anastomosis as well. Once the microvascular anastomoses were completed, attention was turned towards insetting of the flap. The microvascular free flap was carefully positioned into the right breast pocket. Care was taken to ensure a good lie of the pedicle without twisting or kinking. Once this to the surrounding chest wall using a 2-0 Vicryl suture in a simple interrupted fashion. The mastectomy skin flaps were then redraped. The amount of deep skin panel was externalized and was then determined and redundant skin panel was deepithelialized. There was and therefore a number 15 round Gonsalo drain was placed in the right breast pocket and brought out through a separate stab incision laterally and secured to the skin with a 3-0 nylon suture. The deep flap skin panel was then inset to the surrounding mastectomy flap skin edges using a 3-0 Monocryl in a buried deep dermal fashion followed by a 3-0 Monocryl and Stratafix in a running subcuticular fashion. Concurrently, closure of the abdomen was performed. The patient's left-sided fascial incision was closed primarily using a number 1 PDS barbed suture in a simple running fashion. Once the primary fascial closure was completed, the ultrasound system was brought into the field and was sterilely draped. The same local anesthetic mixture had been used for the chest wall field blocks were now used to perform bilateral transverse abdominis plane regional nerve blocks. A total of 30 mL of the local anesthetic mixture were injected into each transverse abdominis plane, again under ultrasound guidance. Once the regional nerve blocks were completed, the patient was placed into a flexed position and the superior abdominal skin flap was advanced and temporarily stapled closed. Two number 15 round Gonsalo drains were and brought out through separate stab incisions laterally and secured to the skin with 3-0 nylon sutures. The lower abdominal closure was then performed in layers. A 2-0 PDS suture was placed in an interrupted buried fashion to reapproximate Justo fascia. This was followed by 3-0 Monocryl in a buried deep dermal fashion and finally 3-0 Monocryl and Stratafix in a running subcuticular fashion. At the site of the umbilicus, transposition a vertical ellipse with a core of fat was excised and inset with a 3-0 PDS in a buried deep dermal fashion followed by Dermabond. Once all incisions were closed, Doppler examination of the right breast microvascular free flap revealed good perfusion with normal capillary refill. Therefore, dressings were placed consisting of Dermabond to the breast incisions and Prineo tape . The drain exit sites were dressed with Biopatch and Tegaderm. The patient was then placed into a loose surgical bra for lower pole support only. The patient at this point was slowly awakened and extubated without incident and then was transported to recovery room in stable condition. CURTIS PLEITEZ M.D. [id number]
--- NOTE | 2019-09-03 07:29 | SURG ---
Surgery Topology Teacher Note Topology Teacher: Demetri Hernandez PA-C Date of Service: 08/27/19 Diagnosis: Right breast cancer. Acquired abscence of right breast and nipple Procedure: 1. removal of rt breast tissue package lift operator w/ open periprosthetic capsuectomy and capsulotomies 2. Right breast reconstruction with deep inferior epigastric rock climbing instructor, microvascular free flap (920g) 3. Partial resection of right 3rd rib 4. Exploration of right intrnal mammary vessels with extensive adventitiectomies 5. Right internal mammary lymph node excision 6. Inraop angiography of right breast skin flaps and deep inferior epigastric rock climbing instructor flap 7. Bilateral ultrasound guided transerse abdominis plane regional nerve blocks I was present for the entirety of the operative procedure. For further detail, please refer to operative report. Visit type - Case Type Case Type: Scheduled - New patient This patient is new to me today: Yes Date on this admission: 09/03/19
== END 2019-08-29 12:45 | disposition home health service (06) | DRG 941 ==
LOC: J2C 06:22 → JICU 15:59
PROVIDERS: ADMIT Plastic Surgery; ATTEND Plastic Surgery
PROC: 07B80ZX Excision of Right Internal Mammary Lymphatic, Open Approach, Diagnostic (ICD-10-PCS; 2019-08-27)
PROC: 0HRT077 Replacement of Right Breast using Deep Inferior Epigastric Artery Perforator Flap, Open Approach (ICD-10-PCS; principal; 2019-08-27 08:00)
PROC: 0HPT0JZ Removal of Synthetic Substitute from Right Breast, Open Approach (ICD-10-PCS; 2019-08-27 08:00)
DX: Z45.811 Encounter for adjustment or removal of right breast implant (principal); C50.811 Malignant neoplasm of overlapping sites of right female breast; Z90.11 Acquired absence of right breast and nipple; R50.9 Fever, unspecified
CPT/HCPCS: 36415; 80048; 83735; 84100; 84703; 85025; 85027; 86850; 86900; 86901; 88300-TC; 88305-TC; 94010; 94760; 97116-GP; 97161-GP; J1644

== ENCOUNTER 2020-04-16 11:16 | Day surgery (SDC) | payer BC ==
[2020-04-16] MEDS ORDERED: PROMETHAZINE HCL 25 MG/1 ML VIAL IVPUSH PRN (11:31)
[2020-04-16] MEDS ORDERED: ONDANSETRON 4 MG/2 ML VIAL IVPUSH PRN (11:31)
[2020-04-16] MEDS ORDERED: oxyCODONE HCL 5 MG TABLET PO PRN (11:31)
[2020-04-16] MEDS ORDERED: LACTATED RINGERS SOLUTION 1,000 ML IV SCH (11:45)
[2020-04-16] MEDS ORDERED: MIDAZOLAM HCL 2 MG/2 ML SINGLE DOSE VIAL ONE ×2 (11:52)
[2020-04-16] MEDS ORDERED: PROPOFOL 20 ML ONE ×2 (11:52)
[2020-04-16 12:00] VITALS: BMI 34.7
[2020-04-16] MEDS ORDERED: LIDOCAINE 1%/EPI 1:100000 (50 ML MULTI DOSE VIAL) INF ONE (12:31)
[2020-04-16 15:33] VITALS: PULSE 76
[2020-04-16 16:01] VITALS: BP 134/82; TEMP 98
== END 2020-04-16 16:01 | disposition home or self-care (01) ==
LOC: FASU 11:16
PROVIDERS: ATTEND Plastic Surgery
PROC: 0HSV0ZZ Reposition Bilateral Breast, Open Approach (ICD-10-PCS; principal; 2020-04-16 12:31)
PROC: 0HSWXZZ Reposition Right Nipple, External Approach (ICD-10-PCS; 2020-04-16 12:31)
DX: M95.4 Acquired deformity of chest and rib (principal); N64.89 Other specified disorders of breast; Z85.3 Personal history of malignant neoplasm of breast
CPT/HCPCS: 84703; 88305-TC; 94760